=== PATIENT | female | born 1980 | race Caucasian/White ===

== ENCOUNTER → 2020-02-17 | Outpatient (CLI) | payer OTHER ==
[~2020-02-17] MED LIST: CLON1 PO; COMBIVENT RESPIM4 GM IH; DIVA125EC PO; FLUSAL5005 INH; GABA300 PO; IBUP800 PO; LACO50TA2 PO; LAMO100 PO; LAVAP17G PO; Melatonin5 M1 PO; OXYC10TA19 PO; QUET25 PO; RIZATRIPTAN5 M1 PO; SERT100 PO; Zanaflex4 MG PO
== END | disposition home or self-care (01) ==
LOC: LAB SHORT 13:38 → LAB 13:38
DX: R82.90 Unspecified abnormal findings in urine (principal)
CPT/HCPCS: 87086

== ENCOUNTER 2020-04-18 20:10 | Emergency (ER) | payer OTHER ==
[~2020-04-18] VITALS: Ht 165.1 cm; Wt 99.8 kg
[2020-04-18] MEDS ORDERED: ATOR20 PO (23:24)
[2020-04-18] MEDS ORDERED: OXYCODONE-ACET1 EAC2 PO (23:28)
[2020-04-18] MEDS ORDERED: PRILOSEC OTC20 MG PO (23:28)
[2020-04-18] MEDS ORDERED: PIROXICAM20 MG PO (23:29)
[2020-04-18] MEDS ORDERED: VENLAFAXINE H37.5 M1 PO (23:29)
== END 2020-04-19 00:40 | disposition home or self-care (01) ==
LOC: ER 20:10
DX: S93.401A Sprain of unspecified ligament of right ankle, initial encounter (principal); Z88.5 Allergy status to narcotic agent; Z91.048 Other nonmedicinal substance allergy status; Z88.8 Allergy status to other drugs, medicaments and biological substances; Z79.899 Other long term (current) drug therapy; F32.9 Major depressive disorder, single episode, unspecified; E78.00 Pure hypercholesterolemia, unspecified; G89.29 Other chronic pain; F17.210 Nicotine dependence, cigarettes, uncomplicated; W18.40XA Slipping, tripping and stumbling without falling, unspecified, initial encounter
CPT/HCPCS: 73630; 99283-25

== ENCOUNTER 2020-07-02 11:07 | Emergency (ER) | payer OTHER ==
[~2020-07-02] VITALS: Ht 165.1 cm; Wt 97.5 kg
[~2020-07-02 11:07] MED LIST changes: +ATOR20 PO; +OXYCODONE-ACET1 EAC2 PO; +PIROXICAM20 MG PO; +PRILOSEC OTC20 MG PO; +VENLAFAXINE H37.5 M1 PO
[2020-07-02 11:58] LABS: BASOPHILS ABSOLUTE AUTO 0.04 K/mm3 (0.00-0.23); BASOPHILS PERCENT AUTO 0 % (0-2); EOSINOPHILS ABSOLUTE AUTO 0.06 K/mm3 (0.00-0.68); EOSINOPHILS PERCENT AUTO 1 % (0-6); Hematocrit 37.2 % (33.0-51.0); Hemoglobin 11.9 g/dL (11.5-16.0); IMMATURE GRAN ABSOLUTE AUTO 0.04 K/mm3 (0.00-0.10); IMMATURE GRAN PERCENT AUTO 0 % (0-1); LYMPHOCYTES ABSOLUTE AUTO 3.27 K/mm3 (0.84-5.20); LYMPHOCYTES PERCENT AUTO 29 % (21-46); MONOCYTES ABSOLUTE AUTO 0.47 K/mm3 (0.16-1.47); MONOCYTES PERCENT AUTO 4 % (4-13); Mean Corpuscular HGB 28.2 pg (26.0-34.0); Mean Corpuscular Volume 88 fL (80-100); NEUTROPHILS ABSOLUTE AUTO 7.33 K/mm3 (1.96-9.15); NEUTROPHILS PERCENT AUTO 65 % (41-73); Platelet Count 280 K/mm3 (150-400); RDW Coefficient Variation 13.1 % (11.7-14.2); RDW Standard Deviation 42.2 fL (35.1-46.3); Red Blood Cell Count 4.22 M/mm3 (3.80-5.20); White Blood Cell Count 11.21 K/mm3 (4.00-11.30)
[2020-07-02 12:05] LABS: Alanine Aminotransfer (ALT/SGP 16 U/L (12-78); Albumin, Blood 3.9 g/dL (3.4-5.0); Alk Phos 98 U/L (50-136); Anion Gap 6 mmol/L (6-16); Aspartate Aminotrans (AST/SGOT 8 U/L (12-37); Bilirubin, Total 0.2 mg/dL (0.1-1.0); Blood Urea Nitrogen 13 mg/dL (8-24); Bun/Creatinine Ratio 19.5 (12.0-20.0); CO2, Blood 26 mmol/L (21-32); Calcium, Blood 8.7 mg/dL (8.5-10.1); Chloride, Blood 105 mmol/L (98-108); Creatinine, Blood 0.67 mg/dL (0.40-1.00); Globulin, Blood 3.8 g/dL (2.2-4.0); Glomerular Filtration Rate >60 (60-); Glucose, Blood 101 mg/dL (70-99); Potassium, Blood 3.8 mmol/L (3.5-5.5); Sodium, Blood 137 mmol/L (136-145); Total Protein, Blood 7.7 g/dL (6.4-8.2)
[2020-07-02] MEDS ORDERED: PIRO20 PO (13:04)
[2020-07-02] MEDS ORDERED: ATOR10 PO (13:05)
[2020-07-02] MEDS ORDERED: Zomig5 M1 (13:05)
[2020-07-02] MEDS ORDERED: CLONAZEPAM1 MG PO (13:05)
[2020-07-02] MEDS ORDERED: BREO ELLIPTA 11 EAC1 INH (13:06)
[2020-07-02] MEDS ORDERED: LAMOTRIGINE100 M1 PO (13:06)
[2020-07-02] MEDS ORDERED: VENL37.5ER PO (13:06)
[2020-07-02] MEDS ORDERED: ZANAFLEX4 M1 PO (13:08)
== END 2020-07-02 13:53 | disposition home or self-care (01) ==
LOC: ER 11:07
PROVIDERS: Emergency Medicine
DX: R56.9 Unspecified convulsions (principal); F41.9 Anxiety disorder, unspecified; F32.9 Major depressive disorder, single episode, unspecified; E78.00 Pure hypercholesterolemia, unspecified; F17.200 Nicotine dependence, unspecified, uncomplicated; Z88.5 Allergy status to narcotic agent; Z88.8 Allergy status to other drugs, medicaments and biological substances; Z91.09 Other allergy status, other than to drugs and biological substances; Z79.899 Other long term (current) drug therapy
CPT/HCPCS: 80053; 84146; 85025; 96374; 99284-25; J2060

== ENCOUNTER 2020-11-27 10:59 | Day surgery (SDC) | payer OTHER ==
[~2020-11-27] VITALS: Ht 165.1 cm; Wt 95.0 kg
[~2020-11-27 10:59] MED LIST changes: +ATOR10 PO; +BREO ELLIPTA 11 EAC1 INH; +CLONAZEPAM1 MG PO; +LAMOTRIGINE100 M1 PO; +PIRO20 PO; +VENL37.5ER PO; +ZANAFLEX4 M1 PO; +Zomig5 M1
--- NOTE | 2020-11-27 12:30 | NUR ---
11/27/20 1230 Raúl Iqbal 0.15ML OF EPI 1MG/ML ADDED TO 30ML OF BUPIVICAINE 0.5% FOR A MIXTURE OF BUPIVICAINE 0.5% WITH EPI 1:200,000.
--- NOTE | 2020-11-27 13:38 | NUR ---
11/27/20 1338 Demetrice Garcia UPON ARRIVING TO STEP DOWN PT STARTED TO DISPLAY SEIZURE LIKE ACTIVITY. MEDICATIONS DOSED PER DR QUEEN'S ORDERS. O2 APPLIED VIA NON-REBREATHER. VSS. BUMPERS ON BED RAILS. LIMBS PROTECTED BY SEVERAL NURSES. DR DA SILVA AT BEDSIDE.
--- NOTE | 2020-11-27 14:15 | NUR ---
11/27/20 1415 Demetrice Garcia PT IN BED AT THIS TIME. VSS. PT AWAKE AND ORIENTED X3. PT TOLERATING PO FLUIDS AND SNACKS WELL. PT DENIES NAUSEA. PT STATES THAT HER PAIN IN THE RIGHT LEG/FOOT IS 0. PT STATES "MY BIG TOE FEELS A LITTLE FUNNY BUT IT DOESNT HURT." PT DOES NOT DISPLAY SEIZURE LIKE ACTIVITY AT THIS TIME. PT IS STILL AND CALM. RN WILL NOTIFY PT'S OF HER PROGRESS PER PT'S REQUEST.
== END 2020-11-27 14:50 | disposition home or self-care (01) ==
LOC: ORSCSDS 10:59
PROVIDERS: Podiatrist Foot & Ankle Surgery
PROC: 0MQQ0ZZ Repair Right Ankle Bursa and Ligament, Open Approach (ICD-10-PCS; principal; 2020-11-27 12:00)
DX: S93.401D Sprain of unspecified ligament of right ankle, subsequent encounter (principal); Z87.891 Personal history of nicotine dependence; J45.909 Unspecified asthma, uncomplicated; R56.9 Unspecified convulsions; Z79.899 Other long term (current) drug therapy
CPT/HCPCS: A9270; C1713; J0171; J0690; J1100; J2060; J2250; J2405; J2704; J3010; J7120

== ENCOUNTER 2021-03-09 11:20 | Emergency (ER) | payer OTHER ==
[~2021-03-09] VITALS: Ht 165.1 cm; Wt 94.3 kg
[2021-03-09] MEDS ORDERED: SERT100 PO (12:01)
[2021-03-09] MEDS ORDERED: Seroquel Xr50 MG (12:01)
[2021-03-09] MEDS ORDERED: GABA300 PO (12:01)
[2021-03-09] MEDS ORDERED: PIRO20 PO (12:02)
[2021-03-09] MEDS ORDERED: RIZATRIPTAN10 MG SL (12:02)
[2021-03-09 12:06] LABS: BASOPHILS ABSOLUTE AUTO 0.03 K/mm3 (0.00-0.23); BASOPHILS PERCENT AUTO 0 % (0-2); EOSINOPHILS ABSOLUTE AUTO 0.13 K/mm3 (0.00-0.68); EOSINOPHILS PERCENT AUTO 2 % (0-6); Hematocrit 38.7 % (33.0-51.0); Hemoglobin 12.5 g/dL (11.5-16.0); IMMATURE GRAN ABSOLUTE AUTO 0.02 K/mm3 (0.00-0.10); IMMATURE GRAN PERCENT AUTO 0 % (0-1); LYMPHOCYTES ABSOLUTE AUTO 2.89 K/mm3 (0.84-5.20); LYMPHOCYTES PERCENT AUTO 36 % (21-46); MONOCYTES ABSOLUTE AUTO 0.31 K/mm3 (0.16-1.47); MONOCYTES PERCENT AUTO 4 % (4-13); Mean Corpuscular HGB 28.3 pg (26.0-34.0); Mean Corpuscular HGB Conc 32.3 g/dL (31.5-36.5); Mean Corpuscular Volume 88 fL (80-100); Mean Platelet Volume 9.4 fL (9.1-12.4); NEUTROPHILS ABSOLUTE AUTO 4.75 K/mm3 (1.96-9.15); NEUTROPHILS PERCENT AUTO 59 % (41-73); Platelet Count 267 K/mm3 (150-400); RDW Standard Deviation 42.2 fL (35.1-46.3); Red Blood Cell Count 4.41 M/mm3 (3.80-5.20); White Blood Cell Count 8.13 K/mm3 (4.00-11.30)
[2021-03-09 12:08] LABS: Alanine Aminotransfer (ALT/SGP 15 U/L (12-78); Albumin, Blood 3.9 g/dL (3.4-5.0); Alk Phos 103 U/L (50-136); Anion Gap 3 mmol/L (6-16); Aspartate Aminotrans (AST/SGOT 11 U/L (12-37); Bilirubin, Total 0.2 mg/dL (0.1-1.0); Blood Urea Nitrogen 8 mg/dL (8-24); Bun/Creatinine Ratio 13.4 (12.0-20.0); CO2, Blood 29 mmol/L (21-32); Calcium, Blood 8.9 mg/dL (8.5-10.1); Chloride, Blood 106 mmol/L (98-108); Globulin, Blood 3.9 g/dL (2.2-4.0); Glomerular Filtration Rate >60 (60-); Glucose, Blood 114 mg/dL (70-99); Potassium, Blood 3.5 mmol/L (3.5-5.5); Sodium, Blood 138 mmol/L (136-145); Total Protein, Blood 7.8 g/dL (6.4-8.2); Troponin I <0.015 ng/mL (0.000-0.040)
[2021-03-09] MEDS ORDERED: Hydrochloroth12.5 MG PO (14:01)
== END 2021-03-09 14:30 | disposition home or self-care (01) ==
LOC: ER 11:20
PROVIDERS: Emergency Medicine
DX: I10 Essential (primary) hypertension (principal); R07.89 Other chest pain; E78.00 Pure hypercholesterolemia, unspecified; F17.200 Nicotine dependence, unspecified, uncomplicated; Z79.899 Other long term (current) drug therapy; Z88.5 Allergy status to narcotic agent; Z91.09 Other allergy status, other than to drugs and biological substances; Z88.8 Allergy status to other drugs, medicaments and biological substances
CPT/HCPCS: 36415; 71046; 80053; 84484; 85025; 93005; 93010; 99284-25

== ENCOUNTER 2022-04-12 11:34 | Inpatient (IN) | payer OTHER, BC ==
[~2022-04-12] VITALS: Ht 165.1 cm; Wt 90.1 kg
[~2022-04-12 11:34] MED LIST changes: +Hydrochloroth12.5 MG PO; +RIZATRIPTAN10 MG SL; +Seroquel Xr50 MG
[2022-04-12 12:53] LABS: BASOPHILS ABSOLUTE AUTO 0.03 K/mm3 (0.00-0.23); BASOPHILS PERCENT AUTO 0 % (0-2); EOSINOPHILS ABSOLUTE AUTO 0.04 K/mm3 (0.00-0.68); EOSINOPHILS PERCENT AUTO 0 % (0-6); Hematocrit 35.6 % (33.0-51.0); Hemoglobin 11.9 g/dL (11.5-16.0); IMMATURE GRAN ABSOLUTE AUTO 0.13 K/mm3 (0.00-0.10); IMMATURE GRAN PERCENT AUTO 1 % (0-1); LYMPHOCYTES ABSOLUTE AUTO 1.86 K/mm3 (0.84-5.20); LYMPHOCYTES PERCENT AUTO 9 % (21-46); MONOCYTES ABSOLUTE AUTO 1.03 K/mm3 (0.16-1.47); MONOCYTES PERCENT AUTO 5 % (4-13); Mean Corpuscular HGB 28.5 pg (26.0-34.0); Mean Corpuscular HGB Conc 33.4 g/dL (31.5-36.5); Mean Corpuscular Volume 85 fL (80-100); Mean Platelet Volume 8.7 fL (9.1-12.4); NEUTROPHILS ABSOLUTE AUTO 17.23 K/mm3 (1.96-9.15); NEUTROPHILS PERCENT AUTO 85 % (41-73); Platelet Count 358 K/mm3 (150-400); RDW Coefficient Variation 13.2 % (11.7-14.2); RDW Standard Deviation 41.1 fL (35.1-46.3); Red Blood Cell Count 4.17 M/mm3 (3.80-5.20); White Blood Cell Count 20.32 K/mm3 (4.00-11.30)
[2022-04-12 13:08] LABS: Albumin, Blood 3.9 g/dL (3.4-5.0); Albumin/Globulin Ratio 0.8 (0.8-1.8); Bilirubin, Total 0.4 mg/dL (0.1-1.0); Bun/Creatinine Ratio 13.6 (12.0-20.0); Calcium, Blood 9.3 mg/dL (8.5-10.1); Creatinine, Blood 0.96 mg/dL (0.40-1.00); Globulin, Blood 4.8 g/dL (2.2-4.0); Potassium, Blood 3.1 mmol/L (3.5-5.5); Total Protein, Blood 8.7 g/dL (6.4-8.2)
[2022-04-12 14:12] LABS: Influenza A, PCR NEGATIVE (NEGATIVE); Influenza B, PCR NEGATIVE (NEGATIVE); Resp Syncytial Virus, PCR NEGATIVE (NEGATIVE); SARS-Cov-2 (COVID-19) PCR, MMC NEGATIVE (NEGATIVE)
--- NOTE | 2022-04-12 17:37 | NUR ---
PATIENT ADMITTED FOR PNEUMONIA Pts reported patient has been sick/hacking cough, difficulty taking seizures medicaitons. Patient also had poor dentation/broken teeth, will have oral surgery soon, but for now needs a soft mechanical/liquid diet. Patient somnolent, arouses to voice, difficulty answering admit questions, at bedisde to assist. ED Techs reported patient had a seziure, while they were transporting her to med floor. Patient weak, 1 person hands on assist for transfers, using BSC for toileting. IV Keppra infusing, LR fluids continuous. IV in right AC. Frequent dry nonproductive cough, lungs diminshed. Reports mild TIM, no other concerns at this time. Vitals stable.
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
[2022-04-13 06:15] LABS: BASOPHILS ABSOLUTE AUTO 0.02 K/mm3 (0.00-0.23); BASOPHILS PERCENT AUTO 0 % (0-2); EOSINOPHILS ABSOLUTE AUTO 0.06 K/mm3 (0.00-0.68); EOSINOPHILS PERCENT AUTO 0 % (0-6); Hematocrit 26.8 % (33.0-51.0); Hemoglobin 8.8 g/dL (11.5-16.0); IMMATURE GRAN ABSOLUTE AUTO 0.11 K/mm3 (0.00-0.10); IMMATURE GRAN PERCENT AUTO 1 % (0-1); LYMPHOCYTES ABSOLUTE AUTO 2.31 K/mm3 (0.84-5.20); LYMPHOCYTES PERCENT AUTO 17 % (21-46); MONOCYTES ABSOLUTE AUTO 0.81 K/mm3 (0.16-1.47); MONOCYTES PERCENT AUTO 6 % (4-13); Mean Corpuscular HGB 28.9 pg (26.0-34.0); Mean Corpuscular HGB Conc 32.8 g/dL (31.5-36.5); Mean Corpuscular Volume 88 fL (80-100); Mean Platelet Volume 8.9 fL (9.1-12.4); NEUTROPHILS PERCENT AUTO 76 % (41-73); Platelet Count 289 K/mm3 (150-400); RDW Coefficient Variation 13.4 % (11.7-14.2); RDW Standard Deviation 43.4 fL (35.1-46.3); Red Blood Cell Count 3.05 M/mm3 (3.80-5.20); White Blood Cell Count 13.81 K/mm3 (4.00-11.30)
[2022-04-13 06:35] LABS: Albumin, Blood 2.9 g/dL (3.4-5.0); Anion Gap 6 mmol/L (6-16); Blood Urea Nitrogen 10 mg/dL (8-24); Bun/Creatinine Ratio 12.7 (12.0-20.0); CO2, Blood 27 mmol/L (21-32); Calcium, Blood 8.7 mg/dL (8.5-10.1); Chloride, Blood 104 mmol/L (98-108); Creatinine, Blood 0.79 mg/dL (0.40-1.00); Glomerular Filtration Rate 96 (60-); Glucose, Blood 100 mg/dL (70-99); Phosphorus, Blood 3.3 mg/dL (2.5-4.9); Potassium, Blood 3.7 mmol/L (3.5-5.5); Sodium, Blood 137 mmol/L (136-145)
--- NOTE | 2022-04-13 11:58 | NUR ---
ASSUMED CARE PT. ARRIVES FROM MEDICAL FLOOR S/P RAPID RESPONSE FOR A SEIZURE. PT. DROWSY BUT ORIENTED UPON ARRIVAL TO ICU. TRANSFERRED TO ICU BED WITH SEIZURE PADS IN PLACE AND PLACED ON MONITOR. VSS AT THIS TIME. PT. REPORTS CHRONIC PAIN IN NECK AND REPORTS CURRENT PAIN IS 9/10, LIVES AT PAIN LEVEL OF 5/10. PAIN MEDICATIONS ORDERED. AWAITING KEPPRA. CALL LIGHT IN REACH, BED IN LOW POSITION.
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
[2022-04-13 13:12] LABS: Prolactin 14.6 ng/mL
--- NOTE | 2022-04-13 14:11 | NUR ---
ASSISTED PT UP TO BEDSIDE COMMODE TO VOID. ATTENDS CHANGED. PT. TOLERATED WELL. ONE PERSON ASSSIT DUE TO DIZZINESS WITH INTITIAL STAND.
--- NOTE | 2022-04-13 15:06 | NUR ---
REPORT TO STEAM TRAIN DRIVER, PT VSS UPON TRANSFER. ABLE TO STAND AND TRANSFER TO WHEEL CHAIR. WATER PROVIDED DURING TRANSPORT PER PT REQUEST. ASKED PT IF SHE WOULD LIKE US TO CALL HER TO NOTIFY HIM OF THE ROOM CHANGE, SHE STATES "NO ILL TELL HIM". ALL BELONGINGS SENT WITH PT
--- NOTE | 2022-04-13 15:17 | NUR ---
TRANSFER: PT ARRIVED TO PCU 7 FROM ICU. PT DROWSY BUT RESPONDS APPROPRIATELY AND FOLLOWS DIRECTIONS. PT 1 ASSIST TO BED FROM WHEELCHAIR. PT STATES SHE IS DIZZY WHEN UP. SEIZURE PADS PLACED ON BED. SUCTION SET UP IN ROOM. VSS. IV PATENT. WILL CONT TO MONITOR AND TREAT ORDERED.
--- NOTE | 2022-04-13 17:24 | NUR ---
PT STABLE SINCE TRANSFER. PT HAS BEEN VERY DROWSY BUT COMPLAINS FREQUENTLY OF PAIN. PT HYPOTENSIVE AT TIMES. LS DIMISHED T/O. SATS STABLE ON RA. OCCASIONAL NON PROD COUGH. PT UP WITH 1 ASSIST TO BSC. C/O DIZZINESS WITH ACTIVITY AND UNSTAEDY ON FEET. BED ALARM ON. LEELA DIET WELL AND DRINKING FLUIDS. SEIZURE PADS TO BED. SUCTION AT BEDSIDE IF NEEDED. SPOUSE AT BEDSIDE, ASSISTS WITH CARE. CT OF HEAD COMPLETED. CPK DRAWN THIS AFTERNOON, AWAITING RESULTS. AM LABS TO BE REPEATED.
--- NOTE | 2022-04-13 17:53 | NUR ---
PT HAD SEIZURE LASTING ABOUT 1 MIN. PT TURNED TO LEFT SIDE. PT SATS STABLE THROUGHOUT. SUCTION TURNED ON BUT NOT NEEDED. SEIZURE PADS REMAIN IN PLACE. SPOUSE AT BEDSIDE TO HELP PT REMAIN CALM. VSS. PT REMAINS DROWSY, SLOW TO SPEAK. WILL CONT TO MONITOR.
--- NOTE | 2022-04-13 18:52 | NUR ---
SEIZURE: PT HAD SEIZURE LASTING ABOUT 5 MIN. PT MEDICATED WITH ATIVAN PER EMAR. PT HITS AND BITES DURING SEIZURE. AT BEDSIDE TO ASSIST IN CALMING PATIENT. PT SATS REMAINED STABLE THROUGHOUT.
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
--- NOTE | 2022-04-14 00:19 | NUR ---
UPDATE: THIS RN ENTERED ROOM TO CHECK IV AND PATIENT HAD SEIZED WITH REFRACTORY WORKER AND DRAFTER TOPOGRAPHICAL AT BEDSIDE WHILE KEPPRA WAS INFUSING. PATIENT RECOVERED AND THEN HAD A 1 MINUTE AND 5 MINUTE SEIZURE BACK WITH 2 MINUTES IN BETWEEN. PATIENT MEDICATED PER EMAR. PATIENT LYING ON RIGHT SIDE WITH 2L NC IN PLACE AND BP SET TO Q15 MIN INTERVALS. VS WNL AT THIS TIME. SEIZURE PADS IN PLACE AND SIDE RAILS UP X3, BED ALARM SET. CALL PLACED TO HOSPITALIST - AWAITING NEW ORDERS.
--- NOTE | 2022-04-14 01:52 | NUR ---
PATIENT RECOVERED FROM POST-SEIZURE AND ATIVAN DROWSINESS ~0130 AND REQUESTED TO USE BSC. A&O X4, VS WNL AND SUPPLEMENTAL O2 REMOVED. TWO PERSON ASSIST FOR SAFETY. PATIENT EMOTIONAL AND KEEPS REPEATING "NO ONE FROM MY 'S FAMILY HAS CALLED TO CHECK ON ME... I WAS GOING TO KILL MYSELF AND THEY DIDN'T CARE. WHAT DOES THAT SAY IF YOU DON'T CHECK ON YOUR SON/BROTHER/FATHER'S OF 12 YEARS WHEN THEY'RE IN THE HOSPITAL? THEY DON'T CARE." PROVIDED THERAPEUTIC LISTENING. PATIENT SITTING IN BED DRAWING IN SKETCHBOOK. BED LOW, SEIZURE PADS IN PLACE, CALL LIGHT IN REACH, AND BED ALARM SET.
[2022-04-14 05:05] LABS: BASOPHILS ABSOLUTE AUTO 0.02 K/mm3 (0.00-0.23); BASOPHILS PERCENT AUTO 0 % (0-2); EOSINOPHILS ABSOLUTE AUTO 0.04 K/mm3 (0.00-0.68); EOSINOPHILS PERCENT AUTO 0 % (0-6); Hematocrit 29.5 % (33.0-51.0); Hemoglobin 9.4 g/dL (11.5-16.0); IMMATURE GRAN ABSOLUTE AUTO 0.09 K/mm3 (0.00-0.10); IMMATURE GRAN PERCENT AUTO 1 % (0-1); LYMPHOCYTES ABSOLUTE AUTO 2.99 K/mm3 (0.84-5.20); LYMPHOCYTES PERCENT AUTO 24 % (21-46); MONOCYTES ABSOLUTE AUTO 0.75 K/mm3 (0.16-1.47); MONOCYTES PERCENT AUTO 6 % (4-13); Mean Corpuscular HGB Conc 31.9 g/dL (31.5-36.5); Mean Corpuscular Volume 88 fL (80-100); Mean Platelet Volume 9.1 fL (9.1-12.4); NEUTROPHILS ABSOLUTE AUTO 8.81 K/mm3 (1.96-9.15); NEUTROPHILS PERCENT AUTO 69 % (41-73); Platelet Count 338 K/mm3 (150-400); RDW Coefficient Variation 13.2 % (11.7-14.2); RDW Standard Deviation 42.5 fL (35.1-46.3); Red Blood Cell Count 3.36 M/mm3 (3.80-5.20)
[2022-04-14 05:50] LABS: Albumin, Blood 3.1 g/dL (3.4-5.0); Albumin/Globulin Ratio 0.7 (0.8-1.8); Bilirubin, Total 0.4 mg/dL (0.1-1.0); Bun/Creatinine Ratio 12.3 (12.0-20.0); Creatinine, Blood 0.65 mg/dL (0.40-1.00); Globulin, Blood 4.4 g/dL (2.2-4.0); Potassium, Blood 3.4 mmol/L (3.5-5.5); Total Protein, Blood 7.5 g/dL (6.4-8.2)
--- NOTE | 2022-04-14 06:04 | NUR ---
SHIFT SUMMARY: VSS T/O NIGHT, MEDICATED FOR MIGRAINE X2. PATIENT ABLE TO SLEEP AFTER MOST RECENT DOSE. NO SEIZURE ACTIVITY SINCE LAST UPDATE - SEE PREVIOUS NOTES. VERSED PRN IS AVAILBLE FOR PROLONGED SEIZURE, BUT PER NURSE DATA ADMINISTRATOR PATIENT WILL NEED TRANSFERRED TO ICU IF ADMINISTERED. ATIVAN PRN IS AVAILABLE. SEIZURE PADS ARE IN PLACE, SUCTIONED AND O2 ARE SET UP FOR USE IF NEEDED. BED LOW AND ALARM SET. CALL LIGHT IN PLACE. WILL CONTINUE TO MONITOR AND REPORT TO ONCOMING RN.
--- NOTE | 2022-04-14 07:43 | NUR ---
Am note Pt alert, oriented X4; calm and cooperative with care. Sba in room. Pt reports intermittent left side/chest pain with cough. Pt denies sob, nausea, dizziness and numb/tingling. Ls coarse in upper lobes, dim in bases, breathing even and unlabored, cough noted. Tele nsr 90's, bp stable. Pt states it has been a couple days since bm, bt normoactive X4 quad, soft nontender. Other vss. No s/sx of distress noted. Will cotninue to monitor.
--- NOTE | 2022-04-14 17:13 | NUR ---
Shift Summary No acute changes noted t/o shift. Pt continues to report chronic pain, medicated per emar. No noted seizure activity t/o shift. Pt apears to be sleeping intermittently this afternoon. Vss. Will continue to monitor.
--- NOTE | 2022-04-14 23:45 | NUR ---
CARE ASSUMPTION: RECEIVED REPORT FROM TO EZE RN. PATIENT IN BED HAD BEEN SEIZURE FREE ALL DAY. PATIENT SEIZED DURING MEDICATION ADMINISTRATION AROUND 2100, SUCTION WAS USED PATIENT WAS GAGGING AND BLOOD WAS SUCTIONED FROM PATIENT'S BROKEN TEETH (KNOWN ISSUE PRIOR TO THIS ADMISSION). PATIENT'S MOVEMENTS WERE FLUID DURING SEIZURE AND PATIENT ROLLED FROM RIGHT SIDE TO LEFT SIDE WHILE KICKING. LOWER SEIZURE PADS WERE RAISED SO ALL FOUR RAILS WERE UP TO PROTECT PATIENT AND STAFF. PATIENT SQUEEZED EYES CLOSED - EYES REACTIVE TO LIGHT WHEN ASSESSED. HR DID NOT INCREASE AND O2 SATURATION CHANGED MINIMALLY DURING ACTIVITY. ATIVAN WAS ADMINISTERED PER EMAR. PRIOR TO SEIZURE PATIENT SAID "I'M FEELING DIZZY. I'M GOING TO HAND THESE BACK TO YOU" AND HANDED THIS RN BACK THE PILL CUP WITH PILLS IN IT. PATIENT RECOVERED <5 MIN AFTER ATIVAN ADMINISTRATION, TOOK PO MEDS, REQUESTED SPRITE AND A PUDDING CUP, AND PROCEEDED TO PLAY A GAME ON HER PHONE. LIGHTS WERE DIMMED, BED LOW, AND CALL LIGHT IN PLACE.
[2022-04-15 04:43] LABS: BASOPHILS ABSOLUTE AUTO 0.02 K/mm3 (0.00-0.23); BASOPHILS PERCENT AUTO 0 % (0-2); EOSINOPHILS ABSOLUTE AUTO 0.04 K/mm3 (0.00-0.68); EOSINOPHILS PERCENT AUTO 0 % (0-6); Hematocrit 28.4 % (33.0-51.0); IMMATURE GRAN ABSOLUTE AUTO 0.07 K/mm3 (0.00-0.10); IMMATURE GRAN PERCENT AUTO 1 % (0-1); LYMPHOCYTES ABSOLUTE AUTO 2.15 K/mm3 (0.84-5.20); LYMPHOCYTES PERCENT AUTO 24 % (21-46); MONOCYTES ABSOLUTE AUTO 0.41 K/mm3 (0.16-1.47); MONOCYTES PERCENT AUTO 5 % (4-13); Mean Corpuscular HGB 28.4 pg (26.0-34.0); Mean Corpuscular HGB Conc 31.7 g/dL (31.5-36.5); Mean Corpuscular Volume 90 fL (80-100); Mean Platelet Volume 8.8 fL (9.1-12.4); NEUTROPHILS PERCENT AUTO 70 % (41-73); Platelet Count 316 K/mm3 (150-400); RDW Coefficient Variation 12.9 % (11.7-14.2); RDW Standard Deviation 42.8 fL (35.1-46.3); Red Blood Cell Count 3.17 M/mm3 (3.80-5.20); White Blood Cell Count 8.89 K/mm3 (4.00-11.30)
[2022-04-15 05:04] LABS: Bun/Creatinine Ratio 13.7 (12.0-20.0); Calcium, Blood 9.1 mg/dL (8.5-10.1); Creatinine, Blood 0.66 mg/dL (0.40-1.00); Potassium, Blood 3.9 mmol/L (3.5-5.5)
--- NOTE | 2022-04-15 06:36 | NUR ---
SHIFT SUMMARY: PATIENT DENIES CHEST PAIN, SOB, OR N/V. VSS ON RA. SBA TO BSC OR TOILET, BED ALARM WAS SET PATIENT WAS AMBULATING SELF TO TOILET AND IS UNSTEADY ON HER FEET. USES CALL LIGHT APPROPRIATELY. NO OTHER SEIZURE EVENTS. PATIENT SLEPT WELL T/O NIGHT. BED LOW WITH CALL LIGHT IN PLACE. WILL CONTINUE TO MONITOR AND REPORT TO ONCOMING RN.
--- NOTE | 2022-04-15 11:45 | NUR ---
Pt to slab puller
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
--- NOTE | 2022-04-15 22:14 | NUR ---
CARE ASSUMPTION: PATIENT AMBULATING TO TOILET. BRIEFS CHANGED AND PATIENT SETTLED BACK IN BED. PLAN PER MD IS TO NOT MEDICATE FOR SEIZURE-LIKE ACTIVITY. PATIENT HAD SEIZURE-LIKE ACTIVITY AT 2124 WHEN THIS RN ENTERED WITH 2100 MEDICATIONS. PATIENT COUGHED AND THRASHED IN BED, THREW PILLOW. SEIZURE PADS IN PLACE AND BED LOWERED. CALL LIGHT IN REACH. PATIENT CALLED 911 FROM HER PERSONAL PHONE - DISPATCHER CALLED [employer]. PATIENT IN BED COUGHING. ASSISTING RN SPOKE WITH DISPATCHER ON PHONE. PATIENT DEMANDED TO KNOW WHERE HER PHONE WAS WHEN ASKED IF SHE WANTED TO ANSWER HER PHONE HER WAS CALLING. PATIENT TOLD TO "COME GET ME OUT OF HERE. THEY AREN'T HELPING ME." PATIENT'S SPOUSE SAID HE WOULD BE HERE IN A FEW MINUTES. PATIENT RECORDING STAFF. [employer] NOTIFIED AND REQUESTED SHE STOP PER HOSPITAL POLICY. PATIENT ARGUED THAT IT WAS HER HEALTH THAT WE ARE NOT CARING FOR SO IT ISN'T A BREACH OF PRIVACY. PUBLIC RECORDS OFFICER NOTIFIED. SECURITY AT DOOR.
--- NOTE | 2022-04-16 02:52 | NUR ---
PATIENT LEFT AMA: FOLLOWING THIS RN'S PREVIOUS NOTE DR. SALAS CAME AND SPOKE WITH PATIENT. PATIENT YELLED THAT NO ONE HERE CARED ABOUT HERE STATING "I WAS SEIZING AND NO ONE GAVE ME MEDICATIONS, OR TOOK VITALS, AND I HAD TO MOVE THE PILLOW FROM MY FACE." DR. SALAS ADVISED STAFF TO "STATISTICAL MACHINE MECHANIC HER SOME TIME" AND SECURITY REMAINED OUTSIDE. PATIENT'S TIA ARRIVED ~2300 AND ASKED THIS RN TO GET A WHEELCHAIR HE WAS TAKING HER HOME AND DIDN'T WANT HER TO WALK TO THE ENTRANCE. THIS RN ASKED IF THEY WANTED TO DISCHARGE OR LEAVE AMA. HE STATED HE DIDN'T CARE. DR. SALAS AND NURSE RUG CLEANING SUPERVISOR WERE CALLED. THIS RN HELPED PACK PATIENT'S BELONGINGS WHILE SHE SAT IN A CHAIR WITH HER HEAD ON THE SIDE TABLE. WHEELCHAIR WAS BROUGHT TO THE ROOM TO ASSIST IN TRANSFER. PATIENT LEFT WITH SPOUSE VIA WHEELCHAIR.
== END 2022-04-15 22:52 | disposition left against medical advice (07) | DRG 871 ==
LOC: ER 11:34 → MEDS 15:42 → PCU 15:42 → MEDS 15:45 → ICUE 04-13 11:48 → PCU 04-13 15:13
PROVIDERS: Family Medicine; Internal Medicine; Physician Assistant; ADMIT Internal Medicine
DX: A41.9 Sepsis, unspecified organism (principal); J18.9 Pneumonia, unspecified organism; R45.851 Suicidal ideations; Z20.822 Contact with and (suspected) exposure to COVID-19; F44.5 Conversion disorder with seizures or convulsions; G89.29 Other chronic pain; E87.6 Hypokalemia; F41.8 Other specified anxiety disorders; Z68.30 Body mass index [BMI] 30.0-30.9, adult; M47.812 Spondylosis without myelopathy or radiculopathy, cervical region; E66.9 Obesity, unspecified; E78.00 Pure hypercholesterolemia, unspecified; G43.909 Migraine, unspecified, not intractable, without status migrainosus; F17.210 Nicotine dependence, cigarettes, uncomplicated; Z79.899 Other long term (current) drug therapy; Z90.49 Acquired absence of other specified parts of digestive tract; Z90.710 Acquired absence of both cervix and uterus; Z90.79 Acquired absence of other genital organ(s); Z98.890 Other specified postprocedural states; Z88.1 Allergy status to other antibiotic agents; Z91.09 Other allergy status, other than to drugs and biological substances; Z88.8 Allergy status to other drugs, medicaments and biological substances; Z88.5 Allergy status to narcotic agent
CPT/HCPCS: 0241U; 36415; 70450; 71046; 80048; 80053; 80069; 82550; 82947; 83605; 84145; 84146; 85025; 87040; 87070; 87205; 94640; 94760; 94762; 96365; 96375; 99285-25; A9270; J0456; J0696; J1650; J1953; J2060; J2250; J2405; J7030; J7050

== ENCOUNTER 2022-06-25 16:27 | Emergency (ER) | payer BC, OTHER ==
[~2022-06-25] VITALS: Ht 165.1 cm; Wt 83.0 kg
[2022-06-25] MEDS ORDERED: HYDCHL25 PO (16:48)
[2022-06-25] MEDS ORDERED: OXYCONTIN30 MG PO (16:50)
[2022-06-25] MEDS ORDERED: OMEP20ER PO (16:52)
[2022-06-25] MEDS ORDERED: ALBU90OI INH (16:53)
[2022-06-25 16:54] LABS: BASOPHILS ABSOLUTE AUTO 0.03 K/mm3 (0.00-0.23); BASOPHILS PERCENT AUTO 0 % (0-2); EOSINOPHILS ABSOLUTE AUTO 0.01 K/mm3 (0.00-0.68); EOSINOPHILS PERCENT AUTO 0 % (0-6); Hematocrit 34.8 % (33.0-51.0); Hemoglobin 11.3 g/dL (11.5-16.0); IMMATURE GRAN ABSOLUTE AUTO 0.04 K/mm3 (0.00-0.10); IMMATURE GRAN PERCENT AUTO 0 % (0-1); LYMPHOCYTES ABSOLUTE AUTO 2.81 K/mm3 (0.84-5.20); LYMPHOCYTES PERCENT AUTO 30 % (21-46); MONOCYTES PERCENT AUTO 6 % (4-13); Mean Corpuscular HGB 28.7 pg (26.0-34.0); Mean Corpuscular HGB Conc 32.5 g/dL (31.5-36.5); Mean Corpuscular Volume 88 fL (80-100); Mean Platelet Volume 9.1 fL (9.1-12.4); NEUTROPHILS ABSOLUTE AUTO 5.95 K/mm3 (1.96-9.15); NEUTROPHILS PERCENT AUTO 63 % (41-73); Platelet Count 257 K/mm3 (150-400); RDW Coefficient Variation 13.7 % (11.7-14.2); RDW Standard Deviation 44.4 fL (35.1-46.3); Red Blood Cell Count 3.94 M/mm3 (3.80-5.20); White Blood Cell Count 9.44 K/mm3 (4.00-11.30)
[2022-06-25] MEDS ORDERED: NARCAN4 M1 NS (16:54)
[2022-06-25] MEDS ORDERED: BUTALB-ACETAMI1 EAC5 PO (16:54)
[2022-06-25 17:11] LABS: Albumin, Blood 3.8 g/dL (3.4-5.0); Bilirubin, Total 0.2 mg/dL (0.1-1.0); Bun/Creatinine Ratio 11.8 (12.0-20.0); Creatinine, Blood 0.93 mg/dL (0.40-1.00); Globulin, Blood 3.7 g/dL (2.2-4.0); Potassium, Blood 3.2 mmol/L (3.5-5.5); Total Protein, Blood 7.5 g/dL (6.4-8.2)
== END 2022-06-25 18:11 | disposition home or self-care (01) ==
LOC: ER 16:27
PROVIDERS: Student in an Organized Health Care Education/Training Program
DX: R56.9 Unspecified convulsions (principal); K21.9 Gastro-esophageal reflux disease without esophagitis; F32.A Depression, unspecified; F17.210 Nicotine dependence, cigarettes, uncomplicated; Z79.899 Other long term (current) drug therapy; Z88.5 Allergy status to narcotic agent; Z88.8 Allergy status to other drugs, medicaments and biological substances; Z91.09 Other allergy status, other than to drugs and biological substances
CPT/HCPCS: 80053; 85025; 93005; 93010; A9270

== ENCOUNTER 2023-09-23 16:09 | Emergency (ER) | payer OTHER ==
[~2023-09-23] VITALS: Ht 165.1 cm; Wt 89.8 kg
[~2023-09-23 16:09] MED LIST changes: +ALBU90OI INH; +BUTALB-ACETAMI1 EAC5 PO; +HYDCHL25 PO; +NARCAN4 M1 NS; +OMEP20ER PO; +OXYCONTIN30 MG PO
[2023-09-23 16:24] VITALS: BP 153/112
[2023-09-23 16:53] LABS: BASOPHILS ABSOLUTE AUTO 0.01 K/mm3 (0.00-0.23); BASOPHILS PERCENT AUTO 0 % (0-2); EOSINOPHILS ABSOLUTE AUTO 0.01 K/mm3 (0.00-0.68); EOSINOPHILS PERCENT AUTO 0 % (0-6); Hematocrit 41.1 % (33.0-51.0); Hemoglobin 13.6 g/dL (11.5-16.0); IMMATURE GRAN ABSOLUTE AUTO 0.01 K/mm3 (0.00-0.10); IMMATURE GRAN PERCENT AUTO 0 % (0-1); LYMPHOCYTES PERCENT AUTO 20 % (21-46); MONOCYTES ABSOLUTE AUTO 0.22 K/mm3 (0.16-1.47); MONOCYTES PERCENT AUTO 4 % (4-13); Mean Corpuscular HGB 28.7 pg (26.0-34.0); Mean Corpuscular HGB Conc 33.1 g/dL (31.5-36.5); Mean Corpuscular Volume 87 fL (80-100); Mean Platelet Volume 9.7 fL (9.1-12.4); NEUTROPHILS ABSOLUTE AUTO 3.84 K/mm3 (1.96-9.15); NEUTROPHILS PERCENT AUTO 76 % (41-73); Platelet Count 174 K/mm3 (150-400); RDW Coefficient Variation 13.1 % (11.7-14.2); RDW Standard Deviation 41.4 fL (35.1-46.3); Red Blood Cell Count 4.74 M/mm3 (3.80-5.20); White Blood Cell Count 5.09 K/mm3 (4.00-11.30)
[2023-09-23 17:21] LABS: Albumin, Blood 4.1 g/dL (3.4-5.0); Bilirubin, Total 0.6 mg/dL (0.1-1.0); Bun/Creatinine Ratio 20.5 (12.0-20.0); Calcium, Blood 9.1 mg/dL (8.5-10.1); Creatinine, Blood 0.73 mg/dL (0.40-1.00); Globulin, Blood 4.2 g/dL (2.2-4.0); Magnesium, Blood 2.4 mg/dL (1.6-2.4); Total Protein, Blood 8.3 g/dL (6.4-8.2)
== END 2023-09-23 18:45 | disposition left against medical advice (07) ==
LOC: ER 16:09
PROVIDERS: Physician Assistant
DX: R11.2 Nausea with vomiting, unspecified (principal); U07.1 COVID-19; Z53.29 Procedure and treatment not carried out because of patient's decision for other reasons
CPT/HCPCS: 80053; 83690; 83735; 85025; 96374; 99283-25; J2405

== ENCOUNTER → 2024-12-15 | Outpatient (CLI) | payer OTHER ==
[~2024-12-15] MED LIST changes: +FAMO20 PO; +ONDA4ODT MM; +PROM12.5S PR
[2024-12-15 18:38] LABS: BASOPHILS ABSOLUTE AUTO 0.03 K/mm3 (0.00-0.23); BASOPHILS PERCENT AUTO 0 % (0-2); EOSINOPHILS PERCENT AUTO 1 % (0-6); Hematocrit 33.5 % (33.0-51.0); Hemoglobin 11.2 g/dL (11.5-16.0); IMMATURE GRAN ABSOLUTE AUTO 0.21 K/mm3 (0.00-0.10); IMMATURE GRAN PERCENT AUTO 3 % (0-1); LYMPHOCYTES ABSOLUTE AUTO 2.18 K/mm3 (0.84-5.20); LYMPHOCYTES PERCENT AUTO 26 % (21-46); MONOCYTES ABSOLUTE AUTO 0.75 K/mm3 (0.16-1.47); MONOCYTES PERCENT AUTO 9 % (4-13); Mean Corpuscular HGB 28.2 pg (26.0-34.0); Mean Corpuscular HGB Conc 33.4 g/dL (31.5-36.5); Mean Corpuscular Volume 84 fL (80-100); Mean Platelet Volume 8.9 fL (9.1-12.4); NEUTROPHILS ABSOLUTE AUTO 5.08 K/mm3 (1.96-9.15); NEUTROPHILS PERCENT AUTO 61 % (41-73); Platelet Count 467 K/mm3 (150-400); RDW Coefficient Variation 12.5 % (11.7-14.2); RDW Standard Deviation 38.4 fL (35.1-46.3); Red Blood Cell Count 3.97 M/mm3 (3.80-5.20); White Blood Cell Count 8.35 K/mm3 (4.00-11.30)
[2024-12-15 20:28] LABS: Albumin, Blood 3.4 g/dL (3.4-5.0); Albumin/Globulin Ratio 0.8 (0.8-1.8); Bilirubin, Total 0.2 mg/dL (0.1-1.0); Calcium, Blood 9.1 mg/dL (8.5-10.1); Globulin, Blood 4.4 g/dL (2.2-4.0); Potassium, Blood 3.4 mmol/L (3.5-5.5); Total Protein, Blood 7.8 g/dL (6.4-8.2)
== END ==
LOC: LAB SHORT 17:42 → LAB 17:42
PROVIDERS: Family Medicine
DX: R11.2 Nausea with vomiting, unspecified (principal)
CPT/HCPCS: 80053; 85025

== ENCOUNTER → 2025-01-05 | Outpatient (CLI) | payer OTHER ==
[2025-01-05 17:04] LABS: Bun/Creatinine Ratio 13.3 (12.0-20.0); Calcium, Blood 9.4 mg/dL (8.5-10.1); Creatinine, Blood 0.91 mg/dL (0.40-1.00)
== END ==
LOC: LAB SHORT 15:48 → LAB 15:48
PROVIDERS: Family Medicine
DX: I12.9 Hypertensive chronic kidney disease with stage 1 through stage 4 chronic kidney disease, or unspecified chronic kidney disease (principal)
CPT/HCPCS: 80048

== ENCOUNTER → 2025-07-20 | Outpatient (CLI) | payer OTHER ==
[2025-07-20 15:22] LABS: Alanine Aminotransfer (ALT/SGP 18.0 U/L (12-78); Albumin, Blood 3.8 g/dL (3.4-5.0); Albumin/Globulin Ratio 1.0 (0.8-1.8); Anion Gap 7.0 mmol/L (3-11); Aspartate Aminotrans (AST/SGOT 14.0 U/L (12-37); Bilirubin, Total 0.2 mg/dL (0.1-1.0); Blood Urea Nitrogen 15.0 mg/dL (8-24); CO2, Blood 29.0 mmol/L (21-32); Calcium, Blood 8.2 mg/dL (8.5-10.1); Chloride, Blood 101.0 mmol/L (98-108); Creatinine, Blood 0.9 mg/dL (0.40-1.00); Globulin, Blood 3.8 g/dL (2.2-4.0); Glucose, Blood 66.0 mg/dL (70-99); Potassium, Blood 3.9 mmol/L (3.5-5.5); Sodium, Blood 133.0 mmol/L (136-145); Thyroid Stimulating Hormone 1.6 uIU/mL (0.360-4.800); Total Protein, Blood 7.6 g/dL (6.4-8.2)
== END ==
LOC: LAB SHORT 10:56 → LAB 10:56
PROVIDERS: Family Medicine
DX: I12.9 Hypertensive chronic kidney disease with stage 1 through stage 4 chronic kidney disease, or unspecified chronic kidney disease (principal); L65.9 Nonscarring hair loss, unspecified
CPT/HCPCS: 80053; 84443